=== PATIENT | female | born 1970 | race Caucasian/White ===

== ENCOUNTER 2016-11-24 11:17 | Emergency (ER) | payer OTHER ==
[~2016-11-24] VITALS: Ht 162.6 cm; Wt 100.2 kg
[~2016-11-24 11:17] MED LIST: ANAPROX DS550 M1 PO; AUGMENTIN875 MG PO; MOTRIN600 MG PO; NAPROXEN500 MG PO; PRENATABS FA T1 EACH PO; ZOLOFT50 MG PO
[2016-11-24 13:19] LABS: MCH 29.4 PG (29.0-34.0); MCHC 33.6 G/DL (30.0-36.0); MCV 87.5 FL (83-99); MEAN PLAT.VOLUME 10.4 uM^3 (9.5-12.4); PLATELET COUNT 252 K/uL (156-360); RBC DIS.WIDTH-CV 13.2 % (11.8-14.6); RBC DIS.WIDTH-SD 42.5 % (39-53); RED BLOOD COUNT 5.14 M/uL (3.80-5.20); WHITE BLOOD COUNT 7.8 K/uL (4.1-10.2)
[2016-11-24 13:27] LABS: CHLORIDE 104 mEq/L (99-109); POTASSIUM 3.5 mEq/L (3.7-5.4); SODIUM 139 mEq/L (136-147)
[2016-11-24 13:30] LABS: GLUCOSE 110 mg/dL (70-99)
[2016-11-24 13:31] LABS: ANION GAP 9 MEQ/L (2-14)
[2016-11-24 13:32] LABS: TOTAL BILIRUBIN 0.4 mg/dL (0.0-1.0)
[2016-11-24 13:33] LABS: ALKALINE PHOSPHATASE 46 IU/L (3-129); GFR ESTIMATE (CALCULATED) > 59 mL/min/
[2016-11-24 13:34] LABS: UREA NITROGEN (BUN) 19 mg/dL (9-23)
[2016-11-24 13:42] LABS: QUANTITATIVE HCG < 4.0 MIU/ML
[2016-11-24 14:26] LABS: ADD MIUA? YES; BILIRUBIN NEGATIVE; BLOOD NEGATIVE; COLOR YELLOW ((YELLOW)); GLUCOSE (STRIP) NEGATIVE; KETONES NEGATIVE; LEUKOCYTES MODERATE; NITRITE NEGATIVE; PROTEIN (STRIP) NEGATIVE; SPECIFIC GRAVITY 1.014 (1.000-1.030); UROBILINOGEN 0.2 MG/DL (0.2-1.0)
[2016-11-24 14:41] LABS: BACTERIA RARE /HPF; EPITHELIAL CELLS 1+ /HPF; MUCUS TRACE /LPF; RED BLOOD CELLS 0-5 /HPF (0-5); WHITE BLOOD CELLS 0-5 /HPF (0-5)
[2016-11-24] MEDS ORDERED: MOTRIN800 MG PO (15:52)
[2016-11-24] MEDS ORDERED: FLEXERIL10 MG PO (15:52)
[2016-11-24 16:43] VITALS: BP 135/92
== END 2016-11-24 16:43 | disposition home or self-care (01) ==
LOC: TRA → EME 11:17 → TRA 16:43
PROVIDERS: Nurse Practitioner Family
DX: S30.1XXA Contusion of abdominal wall, initial encounter (principal); V49.40XA Driver injured in collision with unspecified motor vehicles in traffic accident, initial encounter; Y92.410 Unspecified street and highway as the place of occurrence of the external cause; I10 Essential (primary) hypertension; M54.5 Low back pain; M54.2 Cervicalgia; R93.7 Abnormal findings on diagnostic imaging of other parts of musculoskeletal system
CPT/HCPCS: 71260; 72125; 72129; 72132; 74177; 80053; 81003; 84702; 85027; 99281; 99285; J1885; J7030